=== PATIENT | male | born 1940 ===

== ENCOUNTER 2017-11-02 08:09 | Inpatient (IN) | payer MEDICARE ==
[2017-11-02 07:49] VITALS: BMI 31.1
[2017-11-02] MEDS ORDERED: Ciprofloxacin 400mg/200ml D5W 0 MG/0 ML BAG IVPB ONE (08:46)
[2017-11-02] MEDS ORDERED: Povidone Iodine 5% Spr TP ONE (08:46)
[2017-11-03 10:16] LABS: INR 1.2; PROTHROMBIN TIME 13.3 SECONDS (9.7-12.2)
[2017-11-03] MEDS ORDERED: Propofol 10 mg/ml Inj (20 ML) ONE (11:01)
[2017-11-03] MEDS ORDERED: Midazolam 2 MG/2 ML VIAL ONE (11:02)
[2017-11-03] MEDS ORDERED: Ciprofloxacin 400mg/200ml D5W 400 MG/200 ML BAG IVPB ONE (11:06)
[2017-11-03] MEDS ORDERED: Lidocaine 2% Jelly (Uro-Jet) ONE (11:07)
[2017-11-03] MEDS ORDERED: Iohexol 240 (50 ml) ONE (11:07)
--- NOTE | 2017-11-03 12:10 | PCM.SURG1 ---
Surgeon's Initial Post Op Note - Surgeon's Notes Surgeon: memo Transitional Nurse: none Type of Anesthesia: IV Sedation Anesthesia Administered By: sagar Pre-Operative Diagnosis: bph bladder calculi 6x Operative Findings: bph bladder calculi 6x.prostitis. Post-Operative Diagnosis: bph bladder calculi 6x prostatitis. Operation Performed: cystoscopy Specimen/Specimens Removed: none Estimated Blood Loss: EBL {In ML}: 0 Blood Products Given: N/A Drains Used: No Drains Post-Op Condition: Good Date of Surgery/Procedure: 11/03/17 Time of Surgery/Procedure: 12:12
[2017-11-03 14:06] VITALS: BP 172/85; PULSE 88; RESP 18; TEMP 98.7; O2SAT 98
--- NOTE | 2017-11-04 00:47 | OP ---
PROCEDURE DATE: 11/03/2017 PREOPERATIVE DIAGNOSES: Benign prostatic hyperplasia, bladder calculi. POSTOPERATIVE DIAGNOSES: Benign prostatic hyperplasia, bladder calculi and prostatitis. OPERATION: Cystoscopy. SURGEON: Carlos Beverly MD GROSS FINDINGS: Good bladder capacity. Marked trabeculated bladder. No tumors were observed in the bladder. Bladder calculi noted, 6 in number and 1.5 cm in size. Ureteral orifices not visualized. Enlarged prostate gland with moderate inflammation. TECHNIQUE: This patient was placed in lithotomy position. The external genitalia were prepped and draped in the usual sterile fashion. A #22 panendoscope was introduced in the bladder under direct vision. Findings as above. The procedure was terminated. The patient withstood the procedure well and returned to recovery room in satisfactory condition. RECOMMENDATION: Suprapubic prostatectomy. Carlos Beverly MD
== END 2017-11-03 14:07 | disposition home or self-care (01) | DRG 726 ==
LOC: C.SDS 08:09 → C.9S 11-03 09:05 → EDSTATUS 11-03 12:00
PROVIDERS: ADMIT Urology; ATTEND Urology
PROC: 0TJB8ZZ Inspection of Bladder, Via Natural or Artificial Opening Endoscopic (ICD-10-PCS; principal; 2017-11-03 12:00)
DX: N40.1 Benign prostatic hyperplasia with lower urinary tract symptoms (principal); R33.8 Other retention of urine; N21.0 Calculus in bladder; N41.9 Inflammatory disease of prostate, unspecified; R31.0 Gross hematuria; I10 Essential (primary) hypertension

== ENCOUNTER 2017-11-16 08:49 | Inpatient (IN) | payer MEDICARE ==
[2017-11-16] MEDS ORDERED: Rocuronium 10 mg/ml (5 ml) ONE (10:00)
[2017-11-16] MEDS ORDERED: Propofol 10 mg/ml Inj (20 ML) ONE (10:00)
[2017-11-16] MEDS ORDERED: Ciprofloxacin 400mg/200ml D5W 0 MG/0 ML BAG IVPB ONE (10:20)
[2017-11-16] MEDS ORDERED: Midazolam 2 MG/2 ML VIAL ONE (11:09)
--- NOTE | 2017-11-16 12:16 | CON ---
DATE: 11/12/2017 CARDIOLOGY CONSULT/MEDICAL CLEARANCE HISTORY OF PRESENT ILLNESS: This gentleman is having surgery, 11/16/2017. The preadmission testing is going to be retrieving this, hopefully no later than tomorrow. Requested to see this 77-year-old male in prelude for genitourinary surgery by Dr. Beverly for suprapubic prostatectomy as well as removal of multiple calculi in the bladder. Reason for cardiologic evaluation is abnormal electrocardiogram with a background history of hypertension. This nice gentleman, here with his [id number], has a history of at least a year or more of hypertension taking medication by a primary physician in the form of carvedilol 6.25 mg twice a day. He has a very strong family history of hypertension. He had an accident at work many years ago, 8 to 10 years ago. 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 However, other than that, he feels fine and he is actually in very good physical condition. PAST SURGICAL HISTORY: In addition includes remote appendectomy as well as left inguinal hernia repair. SOCIAL HISTORY: He is a non-smoker smoker and drinks very little, socially during family gatherings and holidays. ALLERGIES: HE CLAIMS TO HAVE NO ALLERGIES WHATSOEVER. REVIEW OF SYSTEMS: From the cardiopulmonary view point, he denies any chest discomfort or shortness of breath. No syncope. Denies any edema of the lower extremity, PND or orthopnea. Rest of the review of systems was otherwise normal. PHYSICAL EXAMINATION: GENERAL: Reveals a senior male appears at least 20 years younger and is very intelligent, very well presented in no distress whatsoever. Very nice gentleman. VITAL SIGNS: Totally stable, blood pressure is around 140/80 or 75 here in the office, pulse is regular about 70 per minute and respiratory rate is also unremarkable. SKIN: Warm and dry. No cyanosis or edema. HEAD: Shows the opacity in the right eye where he lost total vision after the accident at work about 8 to 10 years ago. 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 NECK: Supple without any lymphadenopathy or thyromegaly. No bruits. Jugular veins are normal. Carotids are normal. CHEST: Normal expansion. LUNGS: Totally clear to auscultation. CARDIOLOGIC: Heart, precordium is unremarkable. No thrills. Heart sounds normal in intensity and there is a slight systolic ejection murmur in the left sternal border. Other than that, nothing remarkable. ABDOMEN: Mildly obese although he lost several pounds over the last several weeks. He has an indwelling Sanchez catheter. Dr. Beverly had to insert a few days ago because of total complete urinary obstruction. COMPUTER EQUIPMENT INSTALLER EXAM: Alert, oriented in no distress whatsoever. COMPLEMENTARY DATA: All acceptable per the pre- admission testing except for the electrocardiogram, which shows left ventricular hypertrophy, probably hypertensive heart disease. Chest x-ray, no pulmonary infiltrate. Heart sounds normal in dimension, but the aorta is slightly tortuous on the basis of hypertension. CBC: Normal hemoglobin and hematocrit. Creatinine at 1.5, but that was when he was totally obstructed, probably now, he may be even less than that. BUN is normal. Electrolytes normal. PSA is elevated but this is under the care of Dr. Beverly due to the benign prostatic hypertrophy. Coagulation profile appears normal. INR at 1.2. IMPRESSION: Hypertension, controlled at this point in time. Abnormal electrocardiogram with left ventricular hypertrophy due to hypertensive heart disease. CONCLUSION: At this point in time, Mr. Cowan is medically stable and cleared to proceed with surgery under the care of Dr. Beverly. I will be standing in the background in case he needs me when he is in the hospital. In the meantime, when he is able to resume medications, please re-order the antihypertensive medication in the form of carvedilol 6.25 mg twice a day. Obviously, this will be adjusted as needed and I will talk to him in personally. Ric Bennett MD cc: Carlos Beverly MD MTDD
--- NOTE | 2017-11-16 20:02 | PN ---
DATE: 11/16/2017 LOCATION: Presently in the recovery room. SUBJECTIVE: I came to see the patient in the recovery room after Dr. Beverly called me earlier from the operating room that Mr. Cowan's blood pressure was significantly elevated and anesthesiologist did not want to proceed with the surgery as planned. The patient received 10 mg of IV hydralazine in the operating room and transferred to the recovery room. The surgery was postponed at that moment. Upon arrival to the recovery room around noontime, Mr. Cowan was relatively stable condition, no discharge note. Blood pressure at that point in time had dropped about 165/75 or so, he was totally in good spirits. A kind of upset that the surgery had been postponed. At that point in time, he denied any symptoms whatsoever. No shortness of breath, chest discomfort, whatsoever. The rest of the review of system was otherwise negative. PHYSICAL EXAMINATION: GENERAL: Alert and oriented. VITAL SIGNS: At that point in time showed blood pressure about 165/75, continuous cardiac monitoring showed his rhythm sinus about 65 to 70, respiratory rate was totally unremarkable, O2 saturation was near 100%. CARDIOPULMONARY: From the cardiopulmonary view point, the jugular veins were not distended. Carotids were normal. LUNGS: Totally clear to auscultation. HEART: Sounds normal in intensity and regular with slight systolic murmur that I have mentioned earlier when I had seen him. ABDOMEN: Soft. No localized tenderness. A Sanchez catheter in place is draining clear urine. SUPPRESSION CREW LEADER: Unremarkable. ASSESSMENT AND PLAN: The case was personally discussed with Dr. Beverly and in view of the significant elevated blood pressure even thought that the patient had taken his blood pressure medication on his way to the hospital early this morning, the planned surgery for suprapubic prostatectomy has been canceled at this point. Probably postponed until Thursday. The patient will be kept here overnight; hopefully, sent home tomorrow morning. Surgery cannot be done tomorrow because of the issues. medication, we discussed increasing the carvedilol to 12.5 mg twice a day, add amlodipine at least 5 mg starting today and we will need to readjust that as needed and if necessary then add also perhaps hydralazine p.o. to get him over the surgery. Ric Bennett MD [facility] # [id number]
[2017-11-17 08:16] VITALS: RESP 20; TEMP 97.9; O2SAT 96
[2017-11-17 11:51] LABS: BASO # 0.1 K/uL (0.0-0.2); BASO % 1.1 % (0.0-2.0); EOS # 0.4 K/uL (0.0-0.7); EOS % 5.9 % (0.0-4.0); HEMOGLOBIN 11.9 g/dL (12.0-18.0); LYMPH # 1.7 K/uL (1.0-4.3); LYMPH % 25.1 % (20.0-40.0); MEAN CORPUSCULAR HEMOGLOBIN 28.6 pg (27.0-31.0); MEAN PLATELET VOLUME 8.1 fL (7.2-11.7); MONO # 0.7 K/uL (0.0-0.8); MONO % 9.8 % (0.0-10.0); NEUT % 58.1 % (50.0-75.0); NRBC % 0.1 % (0.0-2.0); RBC 4.16 Mil/uL (4.40-5.90); RED CELL DISTRIBUTION WIDTH 13.9 % (11.5-14.5)
[2017-11-17 11:57] LABS: ALB/GLOB RATIO 1.1 (1.0-2.1); ALBUMIN 3.7 g/dL (3.5-5.0); ALT/SGPT 13 U/L (21-72); AST/SGOT 19 U/L (17-59); BLOOD UREA NITROGEN 19 mg/dL (9-20); CALCIUM 8.9 mg/dl (8.6-10.4); GFR NON-AFRICAN AMERICAN 58
[2017-11-17 11:58] LABS: INR 1.2; PROTHROMBIN TIME 13.2 SECONDS (9.7-12.2)
[2017-11-17 12:54] VITALS: BP 160/50; PULSE 59
--- NOTE | 2017-11-17 19:13 | PN ---
DATE: 11/17/2017 LOCATION: In [address] [place] [address], room 361 B. SUBJECTIVE: Overnight, the blood pressure has been slightly borderline and slightly elevated at times. Earlier this morning, systole was 170, but after he was medicated with his carvedilol and amlodipine, blood pressure dropped, right now it is about 157 to 160 systolic with 60 to 70 diastolic. He feels fine. He just wants to get the surgery done with. While I was examining him in the room with the nurses, Dr. Beverly just came in to take control of the situation and requesting for surgery this coming . He supposed to be here around 8 o'clock and surgery according to the schedule begins sometime about 9.30 or so. At this point in time, he feels fine. No chest pain, dizziness, shortness of breath, etc. His only problem is he is slightly constipated, but Dr. Beverly mentioned that he received an enema on Thursday as part of the surgical procedure evaluation etc. He has not been eating well because he was n.p.o., etc., etc. He has an indwelling Sanchez catheter due to urinary retention, it is draining clear fluid. PHYSICAL EXAMINATION: VITAL SIGNS: Blood pressure a few minutes ago was about 157/70 to 65, pulse regular about 70 per minutes, respiratory rate unremarkable 14 to 16 or so and he is clinically afebrile. CARDIOPULMONARY: From the cardiopulmonary view point, jugular veins are normal, carotids normal. LUNGS: Totally clear to auscultation. HEART: Sounds normal in intensity with the slight systolic murmur, which is chronic, nothing has changed since last several days. ABDOMEN: Soft. No gross organomegaly and as mentioned, he has an indwelling Sanchez catheter. BRANCH OPERATIONS COORDINATOR: Intact. We discussed the situation personally with Dr. Beverly and the patient would be discharged today and again to return at Thursday for surgery. ASSESSMENT: Hypertensive heart disease, improved at the present, appears well compensated. PLAN: To go home today and I will adjust his medications. He will be taken carvedilol 12.5 mg twice a day, amlodipine 5 mg once a day and I just added a small amount of losartan 25 mg once a day. Send this medications to his pharmacy with clonidine that he told me, [facility], telephone number is [phone]. This prescription was sent electronically from my office. At this point in time, he is able to proceed with surgery and we do not want this blood pressure to spike again as he did on Thursday. However, at this point in time, he is stable. Ric Bennett MD
== END 2017-11-17 16:57 | disposition home or self-care (01) | DRG 726 ==
LOC: C.9S 08:49 → C.3T 18:58
PROVIDERS: ADMIT Urology; ATTEND Urology
DX: N40.1 Benign prostatic hyperplasia with lower urinary tract symptoms (principal); N21.0 Calculus in bladder; I11.9 Hypertensive heart disease without heart failure; R33.8 Other retention of urine; R97.20 Elevated prostate specific antigen [PSA]; Z53.09 Procedure and treatment not carried out because of other contraindication; R31.0 Gross hematuria; F17.200 Nicotine dependence, unspecified, uncomplicated; Z82.49 Family history of ischemic heart disease and other diseases of the circulatory system

== ENCOUNTER 2017-11-20 09:00 | Inpatient (IN) | payer MEDICARE ==
[2017-11-25] MEDS ORDERED: Ciprofloxacin 400mg/200ml D5W 400 MG/200 ML BAG IVPB ONE (12:59)
[2017-11-25] MEDS ORDERED: Lidocaine 2% Jelly (Uro-Jet) ONE (13:00)
[2017-11-25] MEDS ORDERED: Propofol 10 mg/ml Inj (20 ML) ONE (13:21)
[2017-11-25] MEDS ORDERED: Neostigmine Methylsulfate 3mg/3ml Syringe IV ONE (15:41)
[2017-11-25] MEDS ORDERED: HYDROmorphone 0.5 mg/0.5 ml ISec IVP PRN (16:08)
--- NOTE | 2017-11-25 16:20 | PCM.SURG1 ---
Surgeon's Initial Post Op Note - Surgeon's Notes Surgeon: memo Medical Assistant Dermatology: Type of Anesthesia: General Endo Anesthesia Administered By: Pre-Operative Diagnosis: urinary retention bph bladder [id number] Operative Findings: bph bladder calculi 6x Post-Operative Diagnosis: bph bladder calculi Operation Performed: suprapubic prostatectomy.removal bladder calculi. Specimen/Specimens Removed: prostate tissue bladder calculi. Estimated Blood Loss: EBL {In ML}: 150 Blood Products Given: N/A Drains Used: No Drains Post-Op Condition: Good Date of Surgery/Procedure: 11/25/17 Time of Surgery/Procedure: 16:23
[2017-11-25 16:45] LABS: MEAN CELL VOLUME 83.8 fL (80.0-94.0); MEAN CORPUSCULAR HEMOGLOBIN 28.1 pg (27.0-31.0); MEAN CORPUSCULAR HGB CONC 33.6 g/dL (33.0-37.0); MEAN PLATELET VOLUME 8.4 fL (7.2-11.7); RBC 4.27 Mil/uL (4.40-5.90); RED CELL DISTRIBUTION WIDTH 13.5 % (11.5-14.5); WHITE BLOOD COUNT 16.5 K/uL (4.8-10.8)
[2017-11-25 17:23] LABS: BLOOD UREA NITROGEN 14 mg/dL (9-20); CALCIUM 8.4 mg/dl (8.6-10.4); GFR NON-AFRICAN AMERICAN > 60
[2017-11-25] MEDS: Dextrose 5%/0.45% NS 1,000 ML IV SCH (21:25)
[2017-11-25] MEDS: Morphine 4 MG/ML VIAL IVP PRN (21:28)
[2017-11-26] MEDS: Ciprofloxacin 400mg/200ml D5W 400 MG/200 ML BAG IVPB SCH ×2 (02:33→15:18)
[2017-11-26] MEDS: Morphine 4 MG/ML VIAL IVP PRN ×2 (03:20→09:15)
[2017-11-26] MEDS: Lactated Ringer's 1,000 ML IV SCH ×2 (05:35→15:08)
[2017-11-26] MEDS: Dextrose 5%/0.45% NS 1,000 ML IV SCH ×2 (05:49→22:43)
[2017-11-26 07:38] LABS: BLOOD UREA NITROGEN 15 mg/dL (9-20); CALCIUM 7.8 mg/dl (8.6-10.4); GFR NON-AFRICAN AMERICAN > 60
[2017-11-26 08:08] LABS: HEMOGLOBIN 10.1 g/dL (12.0-18.0); MEAN CELL VOLUME 83.1 fL (80.0-94.0); MEAN CORPUSCULAR HEMOGLOBIN 28.6 pg (27.0-31.0); MEAN CORPUSCULAR HGB CONC 34.4 g/dL (33.0-37.0); MEAN PLATELET VOLUME 8.6 fL (7.2-11.7); RBC 3.54 Mil/uL (4.40-5.90); RED CELL DISTRIBUTION WIDTH 13.7 % (11.5-14.5); WHITE BLOOD COUNT 8.8 K/uL (4.8-10.8)
[2017-11-26] MEDS ORDERED: Morphine 4 MG/ML VIAL IVP PRN (11:01)
--- NOTE | 2017-11-26 12:32 | PCM.URO ---
Urology Progress Note - General General: Tolerating Diet - Subjective Abdominal Pain: No Flank Pain: No Nausea: No Dysuria: Yes Hematuria: Yes (light) Urinary Urgency: No Chest Pain: No Fever & Chills: No - Objective Lab Results Last 24 Hours: Laboratory Results - last 24 hr 11/25/17 11/25/17 11/25/17 13:58 16:41 16:41 WBC 16.5 H D RBC 4.27 L Hgb 12.0 Hct 35.8 MCV 83.8 MCH 28.1 MCHC 33.6 RDW 13.5 Plt Count 232 MPV 8.4 Sodium 137 Potassium 4.1 Chloride 99 Carbon Dioxide 26 Anion Gap 16 BUN 14 Creatinine 1.0 Est GFR ( Amer) > 60 Est GFR (Non-Af Amer) > 60 Random Glucose 119 H Calcium 8.4 L Blood Type O NEGATIVE Antibody Screen Negative 11/26/17 11/26/17 07:15 07:15 WBC 8.8 RBC 3.54 L Hgb 10.1 L Hct 29.4 L MCV 83.1 MCH 28.6 MCHC 34.4 RDW 13.7 Plt Count 220 MPV 8.6 Sodium 133 Potassium 4.1 Chloride 97 L Carbon Dioxide 26 Anion Gap 14 BUN 15 Creatinine 1.1 Est GFR ( Amer) > 60 Est GFR (Non-Af Amer) > 60 Random Glucose 116 H Calcium 7.8 L Blood Type Antibody Screen Intake & Output: Intake & Output 11/25/17 11/26/17 11/26/17 18:59 06:59 18:59 Intake Total 1850 750 03784 Output Total 600 550 36139 Balance 1250 200 -2540 Weight 168 lb Intake: IV 1850 Intake, IV Amount 500 720 Right Antecubital 500 720 Oral 250 240 Other 78996 Output: Urine 600 550 10325 Suprapubic 550 1750 Other: Voiding Method Indwelling Catheter Indwelling Catheter # Bowel Movements 0 Vital Signs: Vital Signs - 24 hr 11/25/17 11/25/17 11/25/17 16:00 16:15 16:30 Temperature 98.6 F Pulse Rate 66 59 L 58 L Respiratory 12 14 13 Rate Blood Pressure 167/81 H 165/61 H 158/70 H O2 Sat by Pulse 100 100 100 Oximetry 11/25/17 11/25/17 11/25/17 16:45 17:00 17:15 Temperature Pulse Rate 57 L 60 55 L Respiratory 12 13 12 Rate Blood Pressure 149/65 148/57 L 141/58 L O2 Sat by Pulse 100 100 100 Oximetry 11/25/17 11/25/17 11/25/17 17:30 17:45 18:00 Temperature 98.3 F Pulse Rate 56 L 55 L 68 Respiratory 13 15 13 Rate Blood Pressure 133/55 L 137/54 L 150/64 O2 Sat by Pulse 100 100 100 Oximetry 11/25/17 11/26/17 11/26/17 18:30 00:08 11:07 Temperature 97.7 F 98.8 F Pulse Rate 66 67 Respiratory 20 20 Rate Blood Pressure 168/71 H 162/65 H 120/68 O2 Sat by Pulse 99 97 Oximetry
[2017-11-27] MEDS: Ciprofloxacin 400mg/200ml D5W 400 MG/200 ML BAG IVPB SCH ×2 (01:35→13:22)
[2017-11-27] MEDS: Lactated Ringer's 1,000 ML IV SCH ×2 (01:35→10:52)
[2017-11-27] MEDS: Dextrose 5%/0.45% NS 1,000 ML IV SCH ×3 (07:07→19:00)
--- NOTE | 2017-11-27 10:41 | CON ---
DATE: 11/26/2017 CONSULT REQUESTED BY: Carlos Beverly MD LOCATION: In room 358. This is a 77-year-old male, known to me. [facility]. REASON FOR EVALUATION: Hypertension. At that point in time, he was taking only one medication. He denied taking any other medication, so he went for surgery. His blood pressure was significantly elevated, and Anesthesia canceled the procedure. Later on, we found out that he was supposed to have been taking a lot of anti - hypertensive medications by an another physician in the area in [place] some place, but he was not taking any of that prompting a reevaluation in the whole situation. I saw him few days ago again as a followup, and the blood pressure was well controlled, and Dr. Beverly proceeded with surgery which was done yesterday, a suprapubic prostatectomy as well as removal of multiple bladder stones. So far, the situation has been totally unremarkable from the cardiological view point. Blood pressure obviously was a little high when he has pain, but after he gets medications with morphine for the pain. He relaxes, and now the blood pressure is very very well controlled. This morning, he was totally fine except for the pain as it is understandable. He was otherwise in a good mood, and denied any chest pain, shortness of breath, or any problem. He wanted to eat and drink as he was very hungry. REVIEW OF SYSTEMS: Other than the pain in the surgical incisional area, no other complaints such as chest pain, shortness of breath, or palpitations. PHYSICAL EXAMINATION: GENERAL: Alert and oriented, in no cardiopulmonary distress. His only complaint is the pain in the suprapubic area. It is in the surgical area. VITAL SIGNS: Blood pressure this morning was slightly elevated around 160/65, then it dropped about 131/75, and it has been relatively stable now. Pulse is regular. O2 saturation is unremarkable. SKIN: Warm. No cyanosis. No edema. EARS, NOSE, AND THROAT: Basically unremarkable. LUNGS: Clear to auscultation. CARDIOLOGIC EXAM: Jugular veins, carotids normals. Heart sounds normal in intensity and regular. ABDOMEN: Soft. There is a lot of pain in the suprapubic area. There is a large bandage, and there is a suprapubic Sanchez catheter and as well as an indwelling Asnchez catheter in the penis. Both are draining some little pinkish urine as expected. CENTRAL NERVOUS SYSTEM: Alert and oriented, no focal deficits. COMPLEMENTARY DATA: Today, there is a slight drop in the hemoglobin as expected, especially after all the hydration and surgery from 12 yesterday to 10.1 today. Electrolytes are normal. Potassium is normal at 4.1. ASSESSMENT: 1. Hypertensive cardiovascular disease. 2. Suprapubic prostatectomy, removal of bladder calculi as per Dr. Beverly. PLAN: We will continue the same medication that he was not taking in the form of quinapril 40 mg once a day, amlodipine 10 mg once a day, clonidine 0.1 mg twice a day, hydrochlorothiazide 12.5 mg once a day, carvedilol 6.25 mg twice a day. We will adjust these medications as required. Ric Bennett MD MTDJaclyn
[2017-11-27] MEDS: QUINAPRIL 40 MG PO SCH (10:49)
--- NOTE | 2017-11-27 12:22 | CP.PCM.PN ---
Subjective - Date & Time of Evaluation Date of Evaluation: 11/27/17 Time of Evaluation: 12:26 - Subjective Subjective: doing well.bladder drainage pink dressing changed healing well. Objective - Vital Signs/Intake and Output Vital Signs (last 24 hours): Temp Pulse Resp BP Pulse Ox 99.5 F 67 20 137/69 97 11/27/17 07:00 11/27/17 07:00 11/27/17 07:00 11/27/17 07:00 11/27/17 07:00 Intake and Output: 11/27/17 11/27/17 06:59 18:59 Intake Total 890 8040 Output Total 1200 9700 Balance -310 -6870 - Medications Medications: Current Medications Carvedilol (Coreg) 6.25 mg PO BID [facility] Last Admin: 11/27/17 10:48 Dose: 6.25 mg Clonidine HCl (Catapres) 0.1 mg PO BID [facility] Last Admin: 11/27/17 10:48 Dose: 0.1 mg Home Med (Patient's Own Medication) 1 tab PO DAILY [facility] Last Admin: 11/27/17 10:49 Dose: Not Given Hydrochlorothiazide (Microzide) 12.5 mg PO DAILY [facility] Last Admin: 11/27/17 10:48 Dose: 12.5 mg Lactated Ringer's (Lactated Ringer's) 1,000 mls @ 150 mls/hr IV .Q6H40M [facility] Last Admin: 11/27/17 10:52 Dose: Not Given Ciprofloxacin (Cipro 400mg/200ml Dsw) 400 mg in 200 mls @ 133 mls/hr IVPB Q12H [facility]; Protocol Last Admin: 11/27/17 01:35 Dose: 133 mls/hr Dextrose/Sodium Chloride (Dextrose 5%/0.45% Ns 1000 Ml) 1,000 mls @ 80 mls/hr IV .[id number] [facility] Last Admin: 11/27/17 10:51 Dose: 80 mls/hr Morphine Sulfate (Morphine) 2 mg IVP Q4 PRN PRN Reason: Pain, moderate (4-7) Last Admin: 11/27/17 10:45 Dose: 2 mg Rosuvastatin Calcium (Crestor) 10 mg PO HS [facility] Last Admin: 11/26/17 22:52 Dose: 10 mg Zolpidem Tartrate (Ambien) 5 mg PO HS PRN PRN Reason: Insomnia Last Admin: 11/26/17 22:52 Dose: 5 mg - Labs Labs: 11/26/17 07:15 11/26/17 07:15
--- NOTE | 2017-11-27 20:28 | OP ---
PROCEDURE DATE: 11/25/2017 PREOPERATIVE DIAGNOSES: Urinary retention, benign prostatic hypertrophy, bladder calculi. POSTOPERATIVE DIAGNOSES: Urinary retention, benign prostatic hypertrophy, bladder calculi x6. OPERATION: Suprapubic prostatectomy. SURGEON: Carlos Beverly MD OPHTHALMIC LENS INSPECTOR: Isaias Barahona MD GROSS FINDINGS: Good bladder capacity. Moderate trabeculated bladder. Large bladder calculi, numbering 6. Ureteral orifices normally placed and in configuration. Enlarged prostate gland. Membranous and pendulous urethra normal. TECHNIQUE: This patient was placed in supine position. The external genitalia and the lower abdomen were prepped and draped in the usual sterile fashion. A transverse incision was performed two fingerbreadths above the symphysis pubis. The incision was carried down until it reached the rectus muscle fascia, which was opened, and the incision was enlarged laterally exposing the rectus muscle. The rectus muscles were from its fascia by blunt and sharp dissection exposing the anterior bladder wall. The bladder was opened in between two Allis clamp. The bladder calculi were removed, enucleation of prostate gland was accomplished with some difficulties because of the enlargement of the prostate gland. After the prostate tissue was removed, stitches of 2-0 chromic were placed on 5 and 7 o'clock for controlling of bleeding. After this was accomplished, a # 22, 30 mL Sanchez was left in the bladder trough the urethra. Then the anterior bladder wall was closed with interrupted stitches of 2-0 Vicryl. Suprapubic #24, 5 mL was left on both the incision. The bladder was completely closed. The bladder then was irrigated with normal saline. Blood tinged draining was obtained. The rectus muscle were reapproximated with 2-0 chromic, and the fascia was closed with interrupted stitches of 0 Vicryl. 3-0 chromic stitches were placed in the subcutaneous fat, and the skin was closed with ramesh. The suprapubic Sanchez was attached to the skin with 0 silk. Again the bladder was irrigated. Blood tinged draining was obtained. Dressing was applied. The patient withstood the procedure well, and returned to recovery room in satisfactory condition. Carlos Beverly MD [facility] # [id number]
--- NOTE | 2017-11-27 20:57 | PN ---
DATE: 11/27/2017 SUBJECTIVE: No major problems in surgery except for his pain, which is expected. He is being medicated; however, doing very, very well. I spoke personally with Dr. Beverly in the hospital earlier and he told me that surgically he was doing quite well, he changed the dressing, etc. The patient denies any chest pain. No shortness of breath. Tolerating foods, drinking well, etc. No diarrhea. The rest of the review of system was otherwise negative. PHYSICAL EXAMINATION: GENERAL: Alert and oriented, actually looks quite well for the situation. VITAL SIGNS: Quite stable with a blood pressure ranging about 126/66, 137/60 earlier this morning, pulse is regular and was same in the range of about 70 or so per minute, and his respiratory rate unremarkable. Temperature was recorded earlier at 99.5. He denies any chills. HEART: From the cardiopulmonary viewpoint, the jugular veins were not distended. Heart sounds normal in intensity and regular. LUNGS: Remain clear to auscultation. No localized tenderness. Precordium is unremarkable. ABDOMEN: Please refer to Dr. Beverly's note. The suprapubic area with a large dressing. EXTREMITIES: Lower extremities with no evidence of any edema or swelling. CENTRAL NERVOUS SYSTEM: Intact. ASSESSMENT: Hypertensive cardiovascular disease, well compensated at this point in time. PLAN: We will continue same regime with the medication. We will look in to some of the medications are here missing. We will recheck this later. Yesterday, the family brought to the hospital the quinapril 40 mg that he was taking at home and he was supposed to be taking that replacing the enalapril that was being supplied in the hospital mg once a day. At this point, he is medically stable. Ric Bennett MD
[2017-11-28] MEDS: Dextrose 5%/0.45% NS 1,000 ML IV SCH ×3 (00:37→18:37)
[2017-11-28] MEDS: Ciprofloxacin 400mg/200ml D5W 400 MG/200 ML BAG IVPB SCH ×2 (02:14→13:56)
[2017-11-28 07:17] LABS: BASO # 0.1 K/uL (0.0-0.2); BASO % 0.8 % (0.0-2.0); EOS # 0.4 K/uL (0.0-0.7); EOS % 4.1 % (0.0-4.0); HEMOGLOBIN 8.3 g/dL (12.0-18.0); LYMPH # 1.3 K/uL (1.0-4.3); LYMPH % 12.6 % (20.0-40.0); MEAN CELL VOLUME 82.4 fL (80.0-94.0); MEAN CORPUSCULAR HEMOGLOBIN 28.2 pg (27.0-31.0); MEAN CORPUSCULAR HGB CONC 34.3 g/dL (33.0-37.0); MEAN PLATELET VOLUME 8.1 fL (7.2-11.7); MONO # 0.9 K/uL (0.0-0.8); MONO % 9.1 % (0.0-10.0); NEUT # 7.5 K/uL (1.8-7.0); NEUT % 73.4 % (50.0-75.0); RBC 2.95 Mil/uL (4.40-5.90); RED CELL DISTRIBUTION WIDTH 13.2 % (11.5-14.5); WHITE BLOOD COUNT 10.3 K/uL (4.8-10.8)
[2017-11-28] MEDS: QUINAPRIL 40 MG PO SCH (09:22)
--- NOTE | 2017-11-28 12:54 | PCM.URO ---
Urology Progress Note - General General: Tolerating Diet - Subjective Abdominal Pain: No Flank Pain: No Nausea: No Vomiting: No Hematuria: No (light) Urinary Urgency: Yes Dsypnea: No Chest Pain: No Fever & Chills: No - Objective Lab Studies: Reviewed (low hgb cbi draining well light pink) Lab Results Last 24 Hours: Laboratory Results - last 24 hr 11/28/17 07:09 WBC 10.3 RBC 2.95 L Hgb 8.3 L Hct 24.3 L MCV 82.4 MCH 28.2 MCHC 34.3 RDW 13.2 Plt Count 182 MPV 8.1 Neut % (Auto) 73.4 Lymph % (Auto) 12.6 L Sutton % (Auto) 9.1 Eos % (Auto) 4.1 H Baso % (Auto) 0.8 Neut # (Auto) 7.5 H Lymph # (Auto) 1.3 Sutton # (Auto) 0.9 H Eos # (Auto) 0.4 Baso # (Auto) 0.1 Intake & Output: Intake & Output 11/27/17 11/28/17 11/28/17 18:59 06:59 18:59 Intake Total 24654 8710 Output Total 31748 08266 Balance -740 3140 Intake: Intake, IV Amount 1440 640 Right Antecubital 1440 Right Forearm 640 Oral 320 370 Other 87209 7700 Output: Urine 76841 69301 Suprapubic 2100 850 Other: # Bowel Movements 2 Vital Signs: Vital Signs - 24 hr 11/27/17 11/28/17 11/28/17 16:00 00:12 04:00 Temperature 98.1 F 98.5 F 98 F Pulse Rate 67 84 60 Respiratory 20 20 20 Rate Blood Pressure 169/66 H 141/68 145/84 O2 Sat by Pulse 97 97 97 Oximetry 11/28/17 08:00 Temperature 97.6 F Pulse Rate 65 Respiratory 20 Rate Blood Pressure 164/62 H O2 Sat by Pulse 96 Oximetry
[2017-11-28] MEDS: Lactated Ringer's 1,000 ML IV SCH (14:01)
[2017-11-29] MEDS: Ciprofloxacin 400mg/200ml D5W 400 MG/200 ML BAG IVPB SCH ×2 (01:39→14:08)
[2017-11-29 07:36] LABS: BASO # 0.1 K/uL (0.0-0.2); BASO % 0.6 % (0.0-2.0); EOS # 0.5 K/uL (0.0-0.7); EOS % 5.9 % (0.0-4.0); HEMOGLOBIN 8.3 g/dL (12.0-18.0); LYMPH # 1.4 K/uL (1.0-4.3); LYMPH % 16.5 % (20.0-40.0); MEAN CELL VOLUME 82.4 fL (80.0-94.0); MEAN CORPUSCULAR HEMOGLOBIN 28.8 pg (27.0-31.0); MEAN PLATELET VOLUME 8.1 fL (7.2-11.7); MONO # 0.9 K/uL (0.0-0.8); MONO % 10.3 % (0.0-10.0); NEUT # 5.8 K/uL (1.8-7.0); NEUT % 66.7 % (50.0-75.0); RBC 2.87 Mil/uL (4.40-5.90); RED CELL DISTRIBUTION WIDTH 13.1 % (11.5-14.5); WHITE BLOOD COUNT 8.7 K/uL (4.8-10.8)
[2017-11-29] MEDS: QUINAPRIL 40 MG PO SCH (09:19)
[2017-11-29] MEDS: Dextrose 5%/0.45% NS 1,000 ML IV SCH (13:30)
[2017-11-30] MEDS: Ciprofloxacin 400mg/200ml D5W 400 MG/200 ML BAG IVPB SCH ×2 (01:26→14:40)
--- NOTE | 2017-11-30 06:48 | PN ---
DATE: 11/29/2017 SUBJECTIVE: Mr. Cowan remains medically stable. His only complaint is pain at the surgical site, the Sanchez catheter, etc., which I told him that little by little once Dr. Beverly removes the stent, he will improve quite rapidly. He denies shortness of breath or cheat pain. No palpitations. No fever. He denies any chills. Eating quiet well. No complaints other than the pain. PHYSICAL EXAMINATION: GENERAL: Alert, oriented, in no distress whatsoever. VITAL SIGNS: Blood pressure is well compensated with the present medical regimen, earlier it was 136/68, right now it is about 144/63, but vital signs quite stable. SKIN: Slightly pale because of the recent bleeding, etc., but no dependent edema. HEENT: Nose and throat basically unremarkable for his age. LUNGS: Remains clear. NECK: Supple. No bruits. HEART: Heart sounds normal in intensity and regular. ABDOMEN: Pain at the incision site of suprapubic prostatectomy. he has a large bandage dressing. CENTRAL NERVOUS SYSTEM: Totally unremarkable. LABORATORY DATA: Today's CBC again showing a hemoglobin of 8.3, similar more or less than yesterday and he is now on iron supplements, Feosol, ferrous sulfate 325 mg three times a day. ASSESSMENT: Hypertensive cardiovascular disease, stable. Anemia due to recent bleeding after doing prostatectomy, etc. PLAN: We will continue the same medical antihypertensive regimen and will continue iron . Hopefully, he will be out of pain within the next few days. Ric Bennett MD
--- NOTE | 2017-11-30 07:05 | PN ---
DATE: 11/28/2017 LOCATION: Room 358 A. SUBJECTIVE: Continued to improve. Pain in the surgical suprapubic prostatectomy appears to be improving. He is still draining some pinkish hematuric type of urine with continuous bladder irrigation. He took walk yesterday with physical therapy in the corridor, however, none today. He denies any shortness of breath, chest pain, dizziness, or palpitations. No diarrhea. No fever or chills. Eating relatively well according to him. Rest of the review of systems otherwise negative. PHYSICAL EXAMINATION: GENERAL: Alert, oriented. Appears to be in good spirits. No major complaints. VITAL SIGNS: Blood pressure remains physiological at this point in time, latest one today around , pulse is regular about 60 per minute as he is on a beta-rajeev, temperature is about 99, O2 saturation is 96 in room air. NECK: The jugular veins remain flat. LUNGS: Clear. HEART: Heart sounds normal in intensity and regular. EXTREMITIES: Lower extremities, no edema. CENTRAL NERVOUS SYSTEM: Unremarkable. LABORATORY DATA: Complementary data reveals a drop in the hemoglobin, now it is around 8.3, the day of the surgery. The day after the surgery, it was above 12. It has been dropped into slowly 12 to 10 to 8.3 today due to the surgery and continued oozing in the suprapubic prostatectomy area. No hematemesis or melena. IMPRESSION: Hypertensive cardiovascular disease, well compensated; anemia due to acute blood loss via prostatectomy and continuous bladder irrigation. PLAN: Dr. Beverly is quite aware of this situation and keeping a very close eye on the issue. We will continue similar antihypertensive medication. To expedite the anemia recovery, we will introduce some iron orally. Ric Bennett MD
[2017-11-30 08:52] LABS: HEMOGLOBIN 8.4 g/dL (12.0-18.0)
[2017-11-30] MEDS: QUINAPRIL 40 MG PO SCH (09:40)
[2017-11-30] MEDS ORDERED: diaZEpam 10 mg/2 ml Inj IM STA (12:29)
--- NOTE | 2017-11-30 13:05 | PCM.URO ---
Urology Progress Note - Objective Lab Results Last 24 Hours: Laboratory Results - last 24 hr 11/30/17 08:44 Hgb 8.4 L Hct 24.3 L Intake & Output: Intake & Output 11/29/17 11/30/17 11/30/17 18:59 06:59 18:59 Intake Total 60123 700 86262 Output Total 33209 850 85179 Balance -4512 -307 -060 Intake: Intake, IV Amount 400 400 400 Right Forearm 400 400 400 Oral 240 300 180 Other 16952 39709 Output: Urine 72899 850 31244 Suprapubic 2150 850 750 Other: # Bowel Movements 0 0 0 Vital Signs: Vital Signs - 24 hr 11/29/17 11/29/17 11/30/17 16:00 23:00 07:26 Temperature 98.3 F 98.5 F 98.6 F Pulse Rate 54 L 57 L 62 Respiratory 20 20 20 Rate Blood Pressure 144/63 155/65 H 166/60 H O2 Sat by Pulse 98 98 98 Oximetry Imaging Studies: Reviewed (unable to remove sp culver)
[2017-11-30] MEDS: Dextrose 5%/0.45% NS 1,000 ML IV SCH (13:17)
[2017-11-30 22:52] LABS: HEMOGLOBIN 8.4 g/dL (12.0-18.0); MEAN CELL VOLUME 82.9 fL (80.0-94.0); MEAN CORPUSCULAR HEMOGLOBIN 28.5 pg (27.0-31.0); MEAN CORPUSCULAR HGB CONC 34.4 g/dL (33.0-37.0); MEAN PLATELET VOLUME 7.1 fL (7.2-11.7); RBC 2.94 Mil/uL (4.40-5.90); RED CELL DISTRIBUTION WIDTH 13.4 % (11.5-14.5); WHITE BLOOD COUNT 9.3 K/uL (4.8-10.8)
[2017-12-01] MEDS: Ciprofloxacin 400mg/200ml D5W 400 MG/200 ML BAG IVPB SCH (01:21)
--- NOTE | 2017-12-01 02:00 | PN ---
DATE: 11/30/2017 LOCATION: Room 362, B. SUBJECTIVE: I saw him actually where Dr. Beverly was attempting to remove the suprapubic cystostomy tube. He was having some difficulties removing this tube, and he is planning on taking him to the OR tomorrow and to remove it there under local anesthesia, etc. Later on, I stopped to see him. He was complaining of some abdominal pain and had the Sanchez catheter site as expected. He denied any shortness of breath or chest pain. Vital signs were relatively stable. Blood pressure systolic is always in the upper limits. He denied any diarrhea. He is tolerating foods and liquids well. PHYSICAL EXAMINATION: GENERAL: Alert, oriented. Some pain in the surgical area as expected. He is aware that Dr. Beverly is going to try to remove this hopefully surgically. VITAL SIGNS: Blood pressure was around 160/60 diastolic, continues cardiac monitoring, rate regular about 60 per minute. O2 saturation is 100% with small amount of low flow oxygen. I do not think he needs . He is afebrile. HEART: His cardiopulmonary status remains totally stable. Jugular veins now distended. LUNGS: Clear. HEART: Sounds regular and normal in intensity. ABDOMEN: Kindly refer to Dr. Beverly's note. FIELD REP EXAM: No focalization. Alert and oriented. COMPLEMENTARY DATA: Followup hemoglobin today is stable at 8.4. It was 8.3 for the previous two days. He is now in iron supplements. ASSESSMENT: 1. Hypertensive cardiovascular disease, relatively stable. 2. Anemia secondary to blood loss due to surgery as expected. PLAN: Continue similar, the same antihypertensive medication, iron supplement. Hopefully, this suprapubic cystostomy tube would be removed tomorrow, and hopefully, he will be discharged in the next day or two. Ric Bennett MD
[2017-12-01] MEDS: Dextrose 5%/0.45% NS 1,000 ML IV SCH ×2 (06:55→21:51)
[2017-12-01] MEDS: QUINAPRIL 40 MG PO SCH (10:11)
[2017-12-01] MEDS ORDERED: Bupivacaine 0.25% 20 ML INJ IJ ONE (10:59)
[2017-12-01] MEDS ORDERED: LIDOCAINE 2% PF (2ML) ONE (10:59)
[2017-12-01] MEDS ORDERED: Propofol 10 mg/ml Inj (20 ML) ONE (11:11)
[2017-12-01] MEDS ORDERED: Midazolam 2 MG/2 ML VIAL ONE (11:11)
[2017-12-01] MEDS ORDERED: ePHEDrine 50 mg/ml Inj ONE (11:13)
[2017-12-01] MEDS ORDERED: Phenylephrine 10 mg/ml Inj ONE (11:13)
[2017-12-01] MEDS ORDERED: Lidocaine 2% Jelly (Uro-Jet) ONE (11:26)
[2017-12-01] MEDS ORDERED: HYDROmorphone 0.5 mg/0.5 ml ISec IVP PRN (11:52)
--- NOTE | 2017-12-01 12:07 | PCM.URO ---
Urology Progress Note - Subjective Abdominal Pain: Yes Flank Pain: No Nausea: No Vomiting: No Voiding Well: No Dysuria: No Hematuria: Yes Urinary Urgency: No Frequency: No Dsypnea: No Chest Pain: No Other: sp culver remuval urethral culver changed to #24 3[address] culver.irrigation of bladder clots. - Objective Lab Results Last 24 Hours: Laboratory Results - last 24 hr 11/30/17 22:49 WBC 9.3 RBC 2.94 L Hgb 8.4 L Hct 24.4 L MCV 82.9 MCH 28.5 MCHC 34.4 RDW 13.4 Plt Count 306 MPV 7.1 L Intake & Output: Intake & Output 11/30/17 12/01/17 12/01/17 18:59 06:59 18:59 Intake Total 47048 1000 Output Total 33675 1055 Balance -1620 -55 Intake: Intake, IV Amount 400 800 Left Forearm 400 Right Forearm 400 400 Oral 180 200 Other 12967 Output: Urine 64751 1055 Suprapubic 750 1055 Other: # Bowel Movements 0 1 Vital Signs: Vital Signs - 24 hr 11/30/17 12/01/17 12/01/17 15:00 00:00 07:49 Temperature 98.3 F 97.9 F 98.9 F Pulse Rate 60 61 90 Respiratory 20 20 20 Rate Blood Pressure 159/61 H 114/56 L 109/68 O2 Sat by Pulse 100 95 97 Oximetry
--- NOTE | 2017-12-01 13:13 | PCM.SURG1 ---
Surgeon's Initial Post Op Note - Surgeon's Notes Surgeon: memo Wet Sander: none Type of Anesthesia: IV Sedation Pre-Operative Diagnosis: post sp prostatectomy.unable to remove sp culver Operative Findings: suprapubic leakage. Post-Operative Diagnosis: suprapubic leakage. Operation Performed: sp culver removalchange urethral culver to #24 30cc 3way. Specimen/Specimens Removed: none Estimated Blood Loss: EBL {In ML}: 1 Blood Products Given: N/A Drains Used: No Drains Post-Op Condition: Good Date of Surgery/Procedure: 12/01/17 Time of Surgery/Procedure: 13:21
[2017-12-01 15:58] VITALS: RESP 20
--- NOTE | 2017-12-02 04:58 | OP ---
PROCEDURE DATE: 12/01/2017 LOCATION: [facility]. PREOPERATIVE DIAGNOSIS: Unremoved suprapubic Sanchez. POSTOPERATIVE DIAGNOSIS: Suprapubic leakage. OPERATIONS: Suprapubic dressing change, urethral catheter replacement. SURGEON: Carlos Beverly MD TECHNIQUE: This patient was placed in supine position. During the positioning of the patient on the table, the suprapubic Sanchez came out. Then, a #22 urethral Sanchez was removed and replaced by a #24-Persian three-way 30 mL Sanchez. Bladder was irrigated. Small blood clots were obtained. Suprapubic dressing was changed and was dried in recovery room and one hour later at the floor. The patient returned to recovery room in satisfactory condition. Carlos Bevelry MD
--- NOTE | 2017-12-02 06:24 | PN ---
DATE: 12/01/2017 LOCATION: The patient in 350A SUBJECTIVE: Underwent earlier today removal in the OR, removal of the suprapubic cystostomy tube. It appeared that Dr. Beverly, yesterday, he tried to pull it out, and it was stuck in there. He had to take him to the OR, and this was done without any immediate problems. At this moment, he is sedated, sleeping soundly here. No major distress noted. PHYSICAL EXAMINATION VITAL SIGNS: Remained relatively stable with a blood pressure in the range of about 150/64. He is afebrile. The temperature is reported as 98.5. O2 saturation is unremarkable. Respiratory rate is also unremarkable. CARDIOPULMONARY: From the cardiopulmonary viewpoint, the heart sounds are normal in intensity and regular. Jugular veins not distended. LUNGS: When tried, limited exam. No significant adventitious sounds, and again, he is sedated at this point with pain medication. ASSESSMENT: Hypertensive heart disease well under control at this point in time. PLAN: We will continue similar antihypertensive medications for now. Ric Bennett MD
[2017-12-02 08:06] LABS: PLT(ADP) 30 K/uL
[2017-12-02 08:07] LABS: FUNCTIONING PLTS 231 K/uL; PLT BASE COUNT 261 K/uL
[2017-12-02 08:13] LABS: INR 1.5; PROTHROMBIN TIME 16.1 SECONDS (9.7-12.2)
[2017-12-02] MEDS: Dextrose 5%/0.45% NS 1,000 ML IV SCH (09:36)
--- NOTE | 2017-12-02 10:51 | PCM.URO ---
Urology Progress Note - Subjective Abdominal Pain: No Flank Pain: No Nausea: No Vomiting: No Dysuria: No Hematuria: No Dsypnea: No Chest Pain: No Fever & Chills: No - Objective Lab Studies: Reviewed (drainage clear.considering discharge tomorrow) Lab Results Last 24 Hours: Laboratory Results - last 24 hr 12/02/17 12/02/17 12/02/17 08:00 08:00 08:01 PT 16.1 H INR 1.5 APTT 31 Plt Function Assay 231 Intake & Output: Intake & Output 12/01/17 12/02/17 12/02/17 18:59 06:59 18:59 Intake Total 600 460 91774 Output Total 1450 450 41143 Balance -850 10 -160 Intake: IV 350 Intake, IV Amount 250 160 640 Left Forearm 250 160 640 Oral 0 300 0 Other 9750 Output: Urine 1450 450 71970 Suprapubic 1200 450 400 Stool 0 Other: # Bowel Movements 0 Vital Signs: Vital Signs - 24 hr 12/01/17 12/01/17 12/01/17 11:52 12:15 12:30 Temperature 97.6 F Pulse Rate 61 54 L 55 L Respiratory 14 11 L 14 Rate Blood Pressure 148/57 L 147/64 136/55 L O2 Sat by Pulse 100 100 100 Oximetry 12/01/17 12/01/17 12/01/17 12:45 13:00 15:57 Temperature 97.7 F 98.5 F Pulse Rate 58 L 58 L 66 Respiratory 13 13 20 Rate Blood Pressure 145/56 L 139/55 L 150/64 O2 Sat by Pulse 100 100 97 Oximetry 12/02/17 12/02/17 00:22 10:00 Temperature 98.2 F 99.6 F Pulse Rate 60 53 L Respiratory 20 20 Rate Blood Pressure 145/78 171/76 H O2 Sat by Pulse 98 99 Oximetry
[2017-12-02] MEDS ORDERED: Bisacodyl 5mg EC Tab PO ONE (14:15)
--- NOTE | 2017-12-02 21:53 | PN ---
DATE: 12/02/2017 LOCATION: Still in room 358. SUBJECTIVE: Appears improving. Less pain than yesterday after he underwent removal of suprapubic cystostomy tube. I spoke with Dr. Beverly, earlier today, and actually suprapubic cystostomy popped by itself but then he rearranged and replaced a Sanchez catheter, and he is doing quite well at this point in time. Still draining a little hematuric type of urine. The pain has decreased. He denies any chest pain, shortness of breath or palpitations. He is eating relatively well. One of his sons is at the bedside. PHYSICAL EXAMINATION: GENERAL: Alert and oriented, appears in no distress, whatsoever. VITAL SIGNS: Temperature is about 99.6. Blood pressure was elevated earlier about 170 systolic before that, was about 145. Pulse is regular, and respiratory rate is unremarkable. Cardiopulmonary findings remained stable. NECK: Jugular veins are not are distended. LUNGS: Clear. HEART: Heart sounds normal in intensity and regular. ABDOMEN: Slight tenderness at the suprapubic area. A large dressing which appears intact since yesterday. GENITOURINARY: Sanchez catheter again is draining slight hematuric urine SHARK BIOLOGIST: Unremarkable. He had some coagulation profile done today. INR about 1.5. ASSESSMENT: Hypertensive cardiovascular disease, well compensated, secondary has pain, etc, but blood pressure goes little high, but much improved. PLAN: After discussing with Dr. Beverly, he probably be going home on a day or two at the most, and he will go home with the same antihypertensive medications that he is right now. Ric Bennett MD
[2017-12-03] MEDS ORDERED: Morphine 4 MG/ML VIAL IVP PRN (05:45)
[2017-12-03 07:24] VITALS: BP 161/52; PULSE 55; TEMP 99; O2SAT 100
[2017-12-03] MEDS: QUINAPRIL 40 MG PO SCH (09:22)
[2017-12-03] MEDS: Dextrose 5%/0.45% NS 1,000 ML IV SCH (10:44)
[2017-12-03] MEDS ORDERED: Influenza Vaccine 60 MCG/0.5 ML SYR (3 yr & up) IM ONE ×2 (14:10→14:30)
[2017-12-03] MEDS ORDERED: Pneumococcal 23-Valent Vaccine IM ONE (14:10)
[2017-12-03] MEDS ORDERED: Bisacodyl 5mg EC Tab PO SCH (18:00)
--- NOTE | 2017-12-04 01:17 | PN ---
DATE: 12/03/2017 LOCATION: Seen earlier in [address] [place] [id number], 350-A prior to his discharge. SUBJECTIVE: The patient was seen with Dr. Beverly. Yesterday, he removed the suprapubic cystostomy tube, and he is doing very very well. The pain has subsided significantly. Blood pressure remains borderline elevated about 158 to 160 at times when he has pain, but he is eager to get out of here and is very very happy that he is going home, and he is very excited. He was trying to call the family move out there. He denies any chills, diarrhea. No chest pain or shortness of breath or palpitations. PHYSICAL EXAMINATION: GENERAL: Alert and oriented, looked very well. Still pale because of the recent surgery and bleeding after prostrate surgery, and continued bladder irrigation, but he feels much much better. VITAL SIGNS: Blood pressure once again 158/64, 161/52. Pulse is slightly bradycardia due to beta rajeev and O2 saturation is unremarkable. SKIN: Warm and dry. No dependent edema. No cyanosis. HEENT: Head, ears, nose, and throat are unremarkable for his age. LUNGS: Totally clear. CARDIOPULMONARY: Jugular veins, carotids, heart sounds are within the normal limits. Lung mckeon clear. CENTRAL NERVOUS SYSTEM: Unremarkable. ASSESSMENT: Hypertensive cardiovascular disease, left ventricular hypertrophy due to above although at this point in time, coming under control. PLAN: He is going to go home today. I spoke with Dr. Beverly, as well as with nurse practitioner, Avani, and he is going to continue same medications he was taking prior to entry here last time because he has not taken them, that is what we ran into some problems at first time that he was scheduled for surgery here. Anyway, he is going to go home on amlodipine 10 mg once a day, quinapril 40 mg once a day, hydrochlorothiazide 12.5 mg once a day, clonidine 0.1 twice a day, and carvedilol 6.25 mg twice a day. I had a long discussion with him and Dr. Beverly. I do not participate in his health insurance. He told me that "somehow" they treat him, but anyway if he is able to change for his insurance and would like to come to see us, I would be more than happy. He has to go get out of these and go into a standard traditional medicare, that he can go anywhere that he wants to. Ric Bennett MD
== END 2017-12-03 14:30 | disposition home or self-care (01) | DRG 707 ==
LOC: C.9S 11-25 10:35 → C.3T 11-25 18:26
PROVIDERS: ADMIT Urology; ATTEND Urology
PROC: 0TCB0ZZ Extirpation of Matter from Bladder, Open Approach (ICD-10-PCS; 2017-11-25)
PROC: 0VT00ZZ Resection of Prostate, Open Approach (ICD-10-PCS; principal; 2017-11-25 13:00)
PROC: 0TPD7DZ Removal of Intraluminal Device from Urethra, Via Natural or Artificial Opening (ICD-10-PCS; 2017-12-01)
PROC: 0T7D7DZ Dilation of Urethra with Intraluminal Device, Via Natural or Artificial Opening (ICD-10-PCS; 2017-12-01)
DX: N40.1 Benign prostatic hyperplasia with lower urinary tract symptoms (principal); N21.0 Calculus in bladder; N32.89 Other specified disorders of bladder; T83.031A Leakage of indwelling urethral catheter, initial encounter; D62 Acute posthemorrhagic anemia; R31.0 Gross hematuria; R33.8 Other retention of urine; I11.9 Hypertensive heart disease without heart failure

== ENCOUNTER 2017-12-07 14:46 | Observation (INO) | payer MEDICARE ==
[2017-12-07 14:54] VITALS: BMI 26.6
--- NOTE | 2017-12-07 17:20 | C.PDOC ---
History Of Present Illness 77 y/o male presents to ED sent from Urologist office after suspected blood clot in culver associated with decreased urine output. Patient denies fever, vomiting or any other complaints at this time. Time Seen by Provider: 12/07/17 15:01 Chief Complaint (Nursing): Male Genitourinary History Per: Patient History/Exam Limitations: no limitations Onset/Duration Of Symptoms: Days Current Symptoms Are (Timing): Still Present Past Medical History Reviewed: Historical Data, Nursing Documentation, Vital Signs Vital Signs: Last Vital Signs Temp 98.4 F 12/07/17 17:11 Pulse 68 12/07/17 17:11 Resp 17 12/07/17 17:11 BP 150/67 12/07/17 17:11 Pulse Ox 100 12/07/17 17:11 - Medical History PMH: HTN Surgical History: Appendectomy - [facility] Procedures DILATION OF URETHRA WITH INTRALUMINAL DEVICE, VIA OPENING (11/25/17) EXTIRPATION OF MATTER FROM BLADDER, OPEN APPROACH (11/25/17) INSPECTION OF BLADDER, ENDO (11/03/17) REMOVAL OF INTRALUMINAL DEVICE FROM URETHRA, VIA OPENING (11/25/17) RESECTION OF PROSTATE, OPEN APPROACH (11/25/17) Family History: States: No Known Family Hx - Social History Hx Alcohol Use: No Hx Substance Use: No Review Of Systems Constitutional: Negative for: Fever, Chills Genitourinary: Positive for: Other (decreased urine output. ). Negative for: Penile Pain Skin: Negative for: Rash Physical Exam - Physical Exam Appears: Non-toxic, Other (In moderate distress) Skin: Warm, Dry, No Rash Head: Atraumatic, Normacephalic Eye(s): bilateral: Normal Inspection Oral Mucosa: Moist Neck: Supple Cardiovascular: Rhythm Regular Respiratory: Normal Breath Sounds, No Rales, No Rhonchi, No Wheezing Gastrointestinal/Abdominal: Soft, Tenderness (Suprapubic ), No Guarding, No Rebound Back: No CVA Tenderness Neurological/Psych: Oriented x3, Normal Speech, Normal Cognition ED Course And Treatment - Laboratory Results Result Diagrams: 12/07/17 17:30 12/07/17 18:35 O2 Sat by Pulse Oximetry: 100 (RA) Pulse Ox Interpretation: Normal Progress Note: Dr. Beverly is at ED to change culver, requesting bladder irrigation Disposition - Disposition Disposition Time: 18:40 Condition: STABLE - Clinical Impression Clinical Impression: Anemia, Hematuria - Scribe Statement The provider has reviewed the documentation as recorded by the Radhaibana Montano All medical record entries made by the Radhaibana were at my direction and personally dictated by me. I have reviewed the chart and agree that the record accurately reflects my personal performance of the history, physical exam, medical decision making, and the department course for this patient. I have also personally directed, reviewed, and agree with the discharge instructions and disposition.
[2017-12-07 17:22] LABS: BASO # 0.1 K/uL (0.0-0.2); EOS # 0.3 K/uL (0.0-0.7); EOS % 2.1 % (0.0-4.0)
[2017-12-07 17:35] LABS: BASO % 0.6 % (0.0-2.0); LYMPH # 1.7 K/uL (1.0-4.3); MEAN CELL VOLUME 81.9 fL (80.0-94.0); MEAN CORPUSCULAR HEMOGLOBIN 27.2 pg (27.0-31.0); MEAN CORPUSCULAR HGB CONC 33.2 g/dL (33.0-37.0); MEAN PLATELET VOLUME 6.8 fL (7.2-11.7); MONO # 0.8 K/uL (0.0-0.8); MONO % 6.5 % (0.0-10.0); NEUT # 9.3 K/uL (1.8-7.0); NEUT % 76.8 % (50.0-75.0); RBC 2.38 Mil/uL (4.40-5.90); RED CELL DISTRIBUTION WIDTH 13.8 % (11.5-14.5); WHITE BLOOD COUNT 12.1 K/uL (4.8-10.8)
[2017-12-07 17:41] LABS: HEMOGLOBIN 6.5 g/dL (12.0-18.0)
[2017-12-07] MEDS ORDERED: Dextrose 5%/0.45% NS 1,000 ML IV ONE (18:16)
[2017-12-07] MEDS: Dextrose 5%/0.45% NS 1,000 ML IV SCH (18:30)
[2017-12-07 18:57] LABS: INR 1.5; PROTHROMBIN TIME 16.6 SECONDS (9.7-12.2)
[2017-12-07 19:03] LABS: ALB/GLOB RATIO 1.1 (1.0-2.1); ALBUMIN 3.5 g/dL (3.5-5.0); CALCIUM 8.6 mg/dl (8.6-10.4)
[2017-12-07 19:39] VITALS: RESP 20
[2017-12-07] MEDS: Ciprofloxacin 400mg/200ml D5W 400 MG/200 ML BAG IVPB SCH (22:46)
--- NOTE | 2017-12-08 06:28 | PN ---
DATE: 12/07/2017 SUBJECTIVE: This patient was seen in the emergency room because of prostate bleeding. Bladder was thoroughly irrigated after changing the Sanchez to #26 . Numerous clots were obtained after irrigating the bladder manually with normal saline. Suprapubic dressing was dry. CBC was performed, which showed some hemoglobin 6.7. It was decided to admit the patient and give him some blood transfusion, 2 unit packed cells. I then noted on irrigation the drainage was clear. Some traction was applied to the Sanchez catheter and the patient was admitted to the hospital. Carlos Beverly MD
[2017-12-08] MEDS: Dextrose 5%/0.45% NS 1,000 ML IV SCH ×3 (06:36→21:33)
[2017-12-08] MEDS: Ciprofloxacin 400mg/200ml D5W 400 MG/200 ML BAG IVPB SCH ×2 (09:59→21:35)
[2017-12-08 12:11] LABS: BASO # 0.1 K/uL (0.0-0.2); BASO % 0.8 % (0.0-2.0); EOS # 0.5 K/uL (0.0-0.7); EOS % 5.4 % (0.0-4.0); HEMOGLOBIN 8.4 g/dL (12.0-18.0); LYMPH # 1.7 K/uL (1.0-4.3); LYMPH % 16.5 % (20.0-40.0); MEAN CELL VOLUME 83.8 fL (80.0-94.0); MEAN CORPUSCULAR HEMOGLOBIN 29.1 pg (27.0-31.0); MEAN CORPUSCULAR HGB CONC 34.7 g/dL (33.0-37.0); MEAN PLATELET VOLUME 6.8 fL (7.2-11.7); MONO # 0.9 K/uL (0.0-0.8); MONO % 9.2 % (0.0-10.0); NEUT # 6.9 K/uL (1.8-7.0); NEUT % 68.1 % (50.0-75.0); RBC 2.89 Mil/uL (4.40-5.90); RED CELL DISTRIBUTION WIDTH 14.3 % (11.5-14.5); WHITE BLOOD COUNT 10.1 K/uL (4.8-10.8)
[2017-12-09] MEDS: Oxycodone/Acetaminophen 5/325 mg Tab PO PRN ×2 (04:30→10:22)
[2017-12-09] MEDS: Dextrose 5%/0.45% NS 1,000 ML IV SCH ×3 (07:00→21:40)
[2017-12-09] MEDS: Ciprofloxacin 400mg/200ml D5W 400 MG/200 ML BAG IVPB SCH ×2 (10:24→21:37)
[2017-12-10 07:51] VITALS: BP 176/67; PULSE 60; TEMP 97.4; O2SAT 96
[2017-12-10] MEDS: Ciprofloxacin 400mg/200ml D5W 400 MG/200 ML BAG IVPB SCH (09:38)
[2017-12-10] MEDS: Dextrose 5%/0.45% NS 1,000 ML IV SCH (09:44)
--- NOTE | 2017-12-10 12:39 | CP.PCM.PN ---
Subjective - Date & Time of Evaluation Date of Evaluation: 12/10/17 Objective - Vital Signs/Intake and Output Vital Signs (last 24 hours): Temp Pulse Resp BP Pulse Ox 97.4 F L 60 20 176/67 H 96 12/10/17 07:47 12/10/17 07:47 12/10/17 07:47 12/10/17 07:47 12/10/17 07:47 Intake and Output: 12/10/17 12/10/17 06:59 18:59 Intake Total 2060 Output Total 2800 Balance -740 - Medications Medications: Current Medications Amlodipine Besylate (Norvasc) 10 mg PO DAILY [facility] [place] Last Admin: 12/10/17 09:39 Dose: 10 mg Carvedilol (Coreg) 6.25 mg PO BID [facility] Last Admin: 12/10/17 09:39 Dose: 6.25 mg Clonidine HCl (Catapres) 0.1 mg PO BID [facility] [place] Last Admin: 12/10/17 09:38 Dose: 0.1 mg Ferrous Sulfate (Feosol) 325 mg PO TID [facility] [place] Last Admin: 12/10/17 09:38 Dose: 325 mg Hydrochlorothiazide (Microzide) 12.5 mg PO DAILY [facility] [place] Last Admin: 12/10/17 09:39 Dose: 12.5 mg Dextrose/Sodium Chloride (Dextrose 5%/0.45% Ns 1000 Ml) 1,000 mls @ 80 mls/hr IV .[id number] [facility] [place] Last Admin: 12/10/17 09:44 Dose: 80 mls/hr Ciprofloxacin (Cipro 400mg/200ml Dsw) 400 mg in 200 mls @ 133 mls/hr IVPB Q12H [facility]; Protocol Last Admin: 12/10/17 09:38 Dose: 133 mls/hr Oxycodone/Acetaminophen (Percocet 5/325 Mg Tab) 1 tab PO Q4H PRN PRN Reason: Pain, moderate (4-7) Stop: 12/10/17 23:42 Last Admin: 12/09/17 10:22 Dose: 1 tab - Labs Labs: 12/08/17 11:59 12/07/17 18:35 PT 16.6 SECONDS (9.7-12.2) H 12/07/17 18:35 INR 1.5 12/07/17 18:35 APTT 32 SECONDS (21-34) 10/29/18 18:35
--- NOTE | 2017-12-10 12:40 | PCM.URO ---
Urology Progress Note - Subjective Abdominal Pain: No Flank Pain: No Nausea: No Vomiting: No Hematuria: No Dsypnea: No Chest Pain: No Fever & Chills: No - Objective Intake & Output: Intake & Output 12/09/17 12/10/17 12/10/17 18:59 06:59 18:59 Intake Total 6620 2060 Output Total 6000 2800 Balance 620 -740 Intake: Intake, IV Amount 640 1280 Left Antecubital 640 1280 Oral 480 780 Other 5500 Output: Urine 6000 2800 3-way Urethral 2800 Other: # Voids 3-way Urethral 500 # Bowel Movements 0 0 Vital Signs: Vital Signs - 24 hr 12/09/17 12/10/17 12/10/17 15:00 00:00 01:20 Temperature 98.6 F 98.4 F Pulse Rate 50 L 54 L Respiratory 20 20 Rate Blood Pressure 142/57 L 149/61 O2 Sat by Pulse 95 97 97 Oximetry 12/10/17 07:47 Temperature 97.4 F L Pulse Rate 60 Respiratory 20 Rate Blood Pressure 176/67 H O2 Sat by Pulse 96 Oximetry
== END 2017-12-10 15:25 | disposition home health service (06) ==
LOC: C.ER 14:46 → C.9E 19:08 → C.3T 19:33
PROVIDERS: ADMIT Urology; ATTEND Urology
DX: D64.9 Anemia, unspecified (principal); R31.9 Hematuria, unspecified; R39.12 Poor urinary stream; I10 Essential (primary) hypertension